=== PATIENT | female | born 1955 | race Caucasian/White ===

== ENCOUNTER → 2016-08-02 | Outpatient (CLI) | payer MEDICAID | LOC: FIMAGING 11:39 | PROVIDERS: ATTEND Internal Medicine | DX: S22.41XA Multiple fractures of ribs, right side, initial encounter for closed fracture (principal) ==

== ENCOUNTER → 2016-10-06 | Outpatient (CLI) | payer MEDICAID | LOC: BRMIMAGING 09:33 | PROVIDERS: ATTEND Internal Medicine | DX: N64.4 Mastodynia (principal); Z80.3 Family history of malignant neoplasm of breast | CPT/HCPCS: 76641-PO; G0204 ==

== ENCOUNTER 2016-11-17 08:03 | Emergency (ER) | payer MEDICAID ==
[2016-11-17 08:17] VITALS: BP 101/61; PULSE 62; RESP 16; TEMP 98.2; O2SAT 96
[2016-11-17] MEDS ORDERED: predniSONE 20 MG TAB PO ONE (08:38)
--- NOTE | 2016-11-17 08:42 | EDPHY ---
H & P Stated Complaint: STARTED WITH SORE THROAT YESTERDAY Time Seen by Provider: 11/17/16 08:21 - Personal History Current Tetanus Diphtheria and Acellular Pertussis (TDAP): Unsure - Medical/Surgical History Hx Asthma: No Hx Chronic Respiratory Disease: No Hx Diabetes: No Hx Cardiac Disease: No Hx Renal Disease: No Hx Cirrhosis: No Hx Alcoholism: No Hx HIV/AIDS: No Hx Splenectomy or Spleen Trauma: No Other PMH: Right transverse hemicolectomy, ACL reconstruction - Social History Smoking Status: Never smoked Constitutional: Initial Vital Signs Temperature (C) 36.8 C 11/17/16 08:14 Heart Rate 62 11/17/16 08:14 Respiratory Rate 16 11/17/16 08:14 Blood Pressure 101/61 11/17/16 08:14 O2 Sat (%) 96 11/17/16 08:14 O2 Delivery Mode Room Air Allergies/Adverse Reactions: No Known Allergies Allergy (Verified 11/17/16 08:18) Home Medications: Medication Instructions Recorded Cephalexin [Keflex (RX)] 500 mg PO TID #30 cap 11/17/16 Medical Decision Making ED Course/Re-evaluation: CHIEF COMPLAINT: Sore throat HISTORY OF PRESENT ILLNESS: 2 days worth of progressing sore throat in this healthy 61-year-old. 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 She denies any congestion or cough or fevers or chills. She has significant throat pain more on the right than the left and hurts to swallow. She feels like she is getting a strep throat which she has had in the past. She is otherwise healthy and immunocompetent REVIEW OF SYSTEMS: A 10 point review of systems was performed and is negative with the exception of the elements mentioned in the history of present illness. PHYSICAL EXAM: HR, BP, O2 Sat, RR. Temp noted General Appearance: Alert, well hydrated, appropriate, and non-toxic appearing. Head: Atraumatic without scalp tenderness or obvious injury Eyes: Pupils equal, round, reactive to light and accommodation, EOMI, no trauma , no injection. Ears: Clear bilaterally, no perforation, normal landmarks Nose: Atraumatic, no rhinorrhea, clear. Throat: There is bilateral erythema but no exudates, no lesions, normal tonsils , mucus membranes moist. Neck: Supple, 2+ carotid upstroke, nontender, no lymphadenopathy. Respiratory: No retractions, no distress, no wheezes, and no accessory muscle use. Lungs are clear to auscultation bilaterally. Cardiovascular: Regular rate and rhythm, no murmurs, rubs, or gallops. Bilateral carotid, radial, dorsalis pedis, and posterior tibial pulses intact. Good capillary refill all extremities. Gastrointestinal: Abdomen is soft, nontender, non-distended, no masses, no rebound, no guarding, no peritoneal signs. Musculoskeletal: Normal active ROM of all extremities, atraumatic. Neurological: Alert, appropriate, and interactive. The patient has normal DTRs and non-focal cranial nerves, motor, sensory, and cerebellar exam. Skin: No rashes, good turgor, no nodules on palpation. Past medical history: Patient denies Past surgical history: Noncontributory Family history: Noncontributory Social history: Single, employed, does not abuse tobacco drugs or alcohol DIFFERENTIAL DIAGNOSIS: Includes but is not limited to viral pharyngitis, bacterial pharyngitis, strep, mechanical injury MEDICAL DECISION MAKING: This patient is no acute oral symptoms and no congestion. She has isolated throat pain which is worsening over 2 days. I believe she has a bacterial throat infection. I will start her on Keflex and give her 40 mg of prednisone x1. - Data Points Laboratory Results: 11/17/16 11/17/16 Unknown 08:20 Group A Strep Screen NEGATIVE (NEGATIVE) Group A Strep DNA Pending Departure - Departure Disposition: Home, Routine, Self-Care Clinical Impression: Acute pharyngitis Qualifiers: Pharyngitis/tonsillitis etiology: other specified organisms Qualified Code(s): J02.8 - Acute pharyngitis due to other specified organisms Condition: Good Instructions: Pharyngitis (ED) Referrals: Tina Montenegro MD [Primary Care Provider] - As per Instructions Prescriptions: Cephalexin [Keflex (RX)] 500 mg PO TID #30 cap
== END 2016-11-17 08:53 | disposition home or self-care (01) ==
DX: J02.9 Acute pharyngitis, unspecified (principal)

== ENCOUNTER 2016-11-30 09:12 | Emergency (ER) | payer MEDICAID ==
[2016-11-30 09:16] VITALS: TEMP 98.1; O2SAT 99
[2016-11-30] MEDS ORDERED: KETOROLAC 30 MG/1 ML SDV IM ONE (09:28)
[2016-11-30] MEDS ORDERED: diphenhydrAMINE 25 MG CAP PO ONE (09:29)
--- NOTE | 2016-11-30 09:31 | EDPHY ---
HPI/HX/ROS/PE/MDM Narrative: CHIEF COMPLAINT: Right hand pain HISTORY OF PRESENT ILLNESS: The patient is a 61 y/o female complaining of moderate right hand pain secondary to a possible insect bite this morning about 1 hour ago. She was feeding her horses and reached down into the hay and felt sudden stinging pain along the palmar aspect of the base of her right index finger. She has since developed swelling and worsening pain spreading distally to her finger tip and proximal into her palm. She felt normal prior to the event and has no known allergies to insects. She did not see what causes the bite or sting and has not taken anything for pain. She is normally healthy and has no history of diabetes or prednisone use. No itching, fever, chills, chest pain, shortness of breath, palpitations, nausea , vomiting, diarrhea, urinary complaints, headache, lightheadedness. REVIEW OF SYSTEMS: Aside from elements discussed in the HPI, a comprehensive 10-point review of systems was reviewed and is negative. PAST MEDICAL HISTORY: Denies SOCIAL HISTORY: Lives in [place]. . PCP: Dr. Montenegro VITAL SIGNS: Reviewed by me GENERAL: Well-developed, well-nourished, resting comfortably in no respiratory distress. HEENT: Atraumatic. Eyes: No icterus, no injection, no periorbital edema. Mouth: moist mucous membranes. No erythema or lesions. Uvula midline. Neck: supple with no adenopathy. LUNGS: Clear to auscultation bilaterally, no wheezes, rhonchi or rales. No stridor. CARDIAC: Regular rate and rhythm, no rubs, murmurs or gallops. Right hand: strong radial and ulnar pulses ABDOMEN: Soft, nontender, nondistended, bowel sounds normal. BACK: No CVA tenderness. EXTREMITIES: Base of right index finger over proximal phalanx is swollen and tender to palpation with mild duskiness on palmar aspect, swelling and erythema extends to distal tip of finger and onto palm, full index finger extension and flexion intact though painful. Other extremities have no trauma or edema. Range of motion is normal throughout. NEURO: Alert and oriented, grossly nonfocal. SKIN: Warm and dry, no rash. PSYCHIATRIC: Normal mentation, no agitation. Portions of this note were transcribed by a medical coordinator pesticide use. I personally performed a history, physical exam, medical decision making, and confirmed accuracy of information the transcribed note. ED Course: This is a healthy 61 y/o female who presents with worsening right hand tenderness and edema secondary to possible insect sting or bite this morning in her barn. She did not see a spider, wasp, or other cause for her symptoms. No evidence of respiratory distress or indication for wound management at this time. Plan for symptom management. 25mg PO Benadryl and 30mg IM Toradol administered for symptoms. Reassessed patient. She is feeling improved. I've recommended OTC meds for pain and follow up with her PCP for unimproved symptoms. Specific return precautions given. She is comfortable with this plan. MDM: Differential diagnoses for the patient's symptom complex was considered including but not limited to insect bite, wasp sting, bee sting, spider bite, mammilian bite, brown recluse spider bite, black spider bite. - Data Points Medications Given: Discontinued Medications Diphenhydramine HCl (Benadryl) 25 mg PO EDNOW ONE Stop: 11/30/16 09:30 Last Admin: 11/30/16 09:36 Dose: 25 mg Ketorolac Tromethamine (Toradol) 30 mg IM EDNOW ONE Stop: 11/30/16 09:29 Last Admin: 11/30/16 09:36 Dose: 30 mg General Time Seen by Provider: 11/30/16 09:17 Initial Vital Signs: Initial Vital Signs Temperature (C) 36.7 C 11/30/16 09:14 Heart Rate 75 11/30/16 09:14 Respiratory Rate 18 11/30/16 09:14 Blood Pressure 118/84 H 11/30/16 09:14 O2 Sat (%) 99 11/30/16 09:14 O2 Delivery Mode Room Air Allergies/Adverse Reactions: No Known Allergies Allergy (Verified 11/30/16 09:14) Home Medications: Medication Instructions Recorded NK [No Known Home Meds] 11/30/16 Departure - Departure Disposition: Home, Routine, Self-Care Clinical Impression: local reaction to unknown insect, right hand Insect bite Qualifiers: Encounter type: initial encounter Qualified Code(s): W57.XXXA - Bitten or stung by nonvenomous insect and other nonvenomous arthropods, initial encounter Condition: Good Instructions: Insect Bite or Sting (ED), Acute Wounds (ED) Additional Instructions: 1. You may take additional doses of ibuprofen at 4:00 p.m.. I recommend Ibuprofen (Motrin, Advil) for pain and anti-inflammatory effects. Your dose is: Ibuprofen 600 mg every 6-8 hours with food. You may also take Tylenol in addition to ibuprofen for added pain relief. Your dose is 650-1000 mg every 4-6 hours. 2. Take Benadryl as needed for swelling or if you develop itching. You may take an additional dose of Benadryl at 6:00 p.m.. 3. Follow up with your primary care provider if you developed blistering, open sore, increased swelling, or other concerns over the next 2-3 days. 4. Return to the ED for severe worsening pain, dramatically worsening redness or swelling, shortness of breath, difficulty swallowing, fever, or other worsening of condition. Referrals: Tina Montenegro MD [Primary Care Provider] - As per Instructions Report Scribed for: Maria A Shaw Report Scribed by: Loan Nunez Date of Report: 11/30/16 Time of Report: 09:56
[2016-11-30 10:12] VITALS: BP 109/71; PULSE 61; RESP 16
== END 2016-11-30 10:42 | disposition home or self-care (01) ==
DX: S60.561A Insect bite (nonvenomous) of right hand, initial encounter (principal); W57.XXXA Bitten or stung by nonvenomous insect and other nonvenomous arthropods, initial encounter
CPT/HCPCS: J1885

== ENCOUNTER 2017-05-22 17:38 | Emergency (ER) | payer OTHER ==
[2017-05-22 17:47] VITALS: BP 111/71; PULSE 73; RESP 18; TEMP 98.2; O2SAT 97
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
[2017-05-22] MEDS ORDERED: ACETAMINOPHEN 325 MG TAB PO ONE (18:31)
== END 2017-05-22 18:35 | disposition home or self-care (01) ==
DX: S39.012A Strain of muscle, fascia and tendon of lower back, initial encounter (principal); X58.XXXA Exposure to other specified factors, initial encounter; Y99.8 Other external cause status

== ENCOUNTER 2017-12-20 18:32 | Emergency (ER) | payer MEDICAID, OTHER ==
[2017-12-20 18:38] VITALS: BP 83/66
--- NOTE | 2017-12-20 18:56 | EDPHY ---
H & P Stated Complaint: fall Time Seen by Provider: 12/20/17 18:50 - Personal History Current Tetanus Diphtheria and Acellular Pertussis (TDAP): Yes - Medical/Surgical History Hx Asthma: No Hx Chronic Respiratory Disease: No Hx Diabetes: No Hx Cardiac Disease: No Hx Renal Disease: No Hx Cirrhosis: No Hx Alcoholism: No Hx HIV/AIDS: No Hx Splenectomy or Spleen Trauma: No Other PMH: Right transverse hemicolectomy, ACL reconstruction - Social History Smoking Status: Never smoked Constitutional: Initial Vital Signs Temperature (C) 36.6 C 12/20/17 18:34 Heart Rate 59 L 12/20/17 18:34 Respiratory Rate 18 12/20/17 18:34 Blood Pressure 83/66 L 12/20/17 18:34 O2 Sat (%) 97 12/20/17 18:34 O2 Delivery Mode Room Air Allergies/Adverse Reactions: No Known Allergies Allergy (Verified 11/30/16 09:14) Home Medications: Medication Instructions Recorded Hydrocodone/APAP 5/325 [Ririe 1 - 2 each PO Q4-6PRN PRN #20 tab 12/20/17 5/325] Medical Decision Making - Diagnostics Imaging Results: Imaging Impressions Wrist X-Ray 12/20/17 18:38 Impression: 1. Nondisplaced complex distal left radial fracture. Imaging: I viewed and interpreted images myself ED Course/Re-evaluation: CHIEF COMPLAINT: Left wrist pain HISTORY OF PRESENT ILLNESS: The patient is a 62 y/o female complaining of left wrist pain and tailbone pain secondary to falling today. She was walking today when she slipped on water, fell backwards, braced the fall with her left wrist, and landed on her tailbone. She denies hitting her head or losing consciousness. Since the fall she has had left wrist pain and tailbone pain. Denies headache, chest pain, shortness of breath, abdominal pain, urinary or bowel complaints, numbness, paresthesias. REVIEW OF SYSTEMS: A 10 point review of systems was performed and is negative with the exception of the elements mentioned in the history of present illness. PHYSICAL EXAM: HR, BP, O2 Sat, RR. Temp noted General Appearance: Alert, well hydrated, appropriate, and non-toxic appearing. Head: Atraumatic without scalp tenderness or obvious injury Eyes: Pupils equal, round, reactive to light and accommodation, EOMI, no trauma , no injection. Ears: Clear bilaterally, no perforation, normal landmarks Nose: Atraumatic, no rhinorrhea, clear. Throat: There is no erythema or exudates, no lesions, normal tonsils, mucus membranes moist. Neck: Supple, 2+ carotid upstroke, nontender, no lymphadenopathy. Respiratory: No retractions, no distress, no wheezes, and no accessory muscle use. Lungs are clear to auscultation bilaterally. Cardiovascular: Regular rate and rhythm, no murmurs, rubs, or gallops. Bilateral carotid, radial, dorsalis pedis, and posterior tibial pulses intact. Good capillary refill all extremities. Gastrointestinal: Abdomen is soft, nontender, non-distended, no masses, no rebound, no guarding, no peritoneal signs. Musculoskeletal: Normal active ROM of all extremities, atraumatic. Neurological: Alert, appropriate, and interactive. The patient has normal DTRs and non-focal cranial nerves, motor, sensory, and cerebellar exam. Skin: No rashes, good turgor, no nodules on palpation. Past medical history: Denies Past surgical history: Right transverse hemicolectomy, ACL reconstruction Family history: Denies Social history: Lives in [place], single, not employed DIAGNOSTICS/PROCEDURES/CRITICAL CARE TIME: Left wrist x-ray: Minimally displaced distal radius Procedure: Splint placement. An orthoglass sugar tong splint was applied to the left wrist by the tech. After application of the splint I returned and re-examined the patient. The splint was adequately immobilizing the joint and distal to the splint the patient's circulation and sensation was intact. DIFFERENTIAL DIAGNOSIS: The differential diagnosis for the patient's wrist injury included but was not limited to fracture, ligamentous injury, contusion, muscular strain. MEDICAL DECISION MAKING: The patient is a 62 y/o female presenting with left wrist pain and tailbone pain secondary to falling today. On exam she has left wrist tenderness to palpation. Left wrist x-ray ordered; 2 tabs Ririe administered. Reassessed patient and discussed imaging findings. She will be placed in a splint. I have prescribed her Ririe and advised that she follow up with an orthopedic surgeon. Return precautions provided; patient is comfortable with this plan. - Data Points Medications Given: Discontinued Medications Hydrocodone Bitart/Acetaminophen (Ririe 5/325) 2 tab PO EDNOW ONE Stop: 10/07/18 18:59 Last Admin: 12/20/17 19:04 Dose: 2 tab Departure - Departure Disposition: Home, Routine, Self-Care Clinical Impression: Distal radial fracture Qualifiers: Encounter type: initial encounter Fracture type: closed Fracture morphology: unspecified fracture morphology Laterality: left Qualified Code(s): S52.502A - Unspecified fracture of the lower end of left radius, initial encounter for closed fracture Condition: Good Instructions: Wrist Fracture in Adults (ED) Additional Instructions: 1. Rest, ice, elevation. 2. Follow up with an orthopedic surgeon within one week. 3. Return to the emergency department for worsening pain, swelling, numbness, weakness or other concerns. 4. Wear splint at all times until reevaluation. 5. Take Ririe as prescribed for pain. Referrals: Ricardo Florez MD [Medical Doctor] - As per Instructions Prescriptions: Hydrocodone/APAP 5/325 [Ririe 5/325] 1 - 2 each PO Q4-6PRN PRN #20 tab PRN Reason: Pain, Moderate
[2017-12-20] MEDS ORDERED: HYDROCODONE/APAP 5/325 TAB PO ONE (18:58)
[2017-12-20] MEDS ORDERED: HYDROCOD/APAP 5/325 PREPACK#6 BTL TAKEHOME ONE (19:23)
== END 2017-12-20 19:29 | disposition home or self-care (01) ==
PROC: 2W3DX1Z Immobilization of Left Lower Arm using Splint (ICD-10-PCS; principal; 2017-12-20)
DX: S52.502A Unspecified fracture of the lower end of left radius, initial encounter for closed fracture (principal); M53.3 Sacrococcygeal disorders, not elsewhere classified; W01.0XXA Fall on same level from slipping, tripping and stumbling without subsequent striking against object, initial encounter; Y93.K1 Activity, walking an animal; Y92.9 Unspecified place or not applicable; Y99.9 Unspecified external cause status
CPT/HCPCS: A4565

== ENCOUNTER → 2018-01-12 | Outpatient (CLI) | payer MEDICAID | LOC: FIMAGING 10:51 | PROVIDERS: ATTEND Internal Medicine | DX: M25.512 Pain in left shoulder (principal) ==

== ENCOUNTER → 2018-05-05 | Outpatient (CLI) | payer MEDICAID | LOC: FIMAGING 14:41 | PROVIDERS: ATTEND Internal Medicine | DX: Z12.31 Encounter for screening mammogram for malignant neoplasm of breast (principal) ==